=== PATIENT | female | born 1985 | race African-American/Black ===

== ENCOUNTER 2019-02-05 15:43 | Emergency (ER) | payer OTHER ==
[~2019-02-05] VITALS: Ht 162.6 cm; Wt 74.4 kg
--- NOTE | 2019-02-05 17:08 | NUR ---
PT TO ER BED 10. C/O CHEST PALPITATION FOR 1 WEEK NOW. MONDAY SHE WAS AT URGENT CARE FOR A WORK UP AND RECIEVED A CALL ADVISING HER TO GO TO ED BECAUSE HER D DIMER IS HIGH. PLACED ON MONITOR. STABLE VITAL. AWAITING MD DOMINGUEZ.
--- NOTE | 2019-02-05 17:11 | NUR ---
JOAN HOUSTON AT BEDSIDE FOR EVAL.
--- NOTE | 2019-02-05 17:26 | NUR ---
PANMAN AT BEDSIDE FOR BLOOD DRAW.
[2019-02-05 17:33] LABS: BASOPHILS % (AUTO) 0.5 % (0.0-2.0); EOSINOPHILS % (AUTO) 2.6 % (0.0-6.0); HEMATOCRIT 37 % (33-45); HEMOGLOBIN 12.2 g/dL (11.5-14.8); LYMPHOCYTES % (AUTO) 33.8 % (20.0-44.0); MEAN CORPUSCULAR HGB CONC 33 g/dl (31.0-36.0); MEAN CORPUSCULAR VOLUME 86 fL (82-100); MONOCYTES # (AUTO) 0.8 /CMM (0.1-1.30); MONOCYTES % (AUTO) 9.5 % (2.0-12.0); NEUTROPHILS # (AUTO) 4.7 /CMM (1.8-8.9); NEUTROPHILS % (AUTO) 53.6 % (43.0-81.0); PLATELET COUNT (AUTO) 252 /CMM (150-450); RED BLOOD CELL COUNT(AUTO) 4.32 MIL/uL (4.0-5.2); WHITE BLOOD COUNT (AUTO) 8.8 K/uL (4.3-11.0)
[2019-02-05 17:49] LABS: ALANINE AMINOTRANSFERASE 15 U/L (12-78); ALBUMIN 3.4 g/dL (3.4-5.0); ALKALINE PHOSPHATASE 39 U/L (46-116); ASPARTATE AMINOTRANSFERASE 17 U/L (15-37); BILIRUBIN,DIRECT 0.1 mg/dL (0.0-0.2); BILIRUBIN,TOTAL 0.4 mg/dL (0.2-1.0); CALCIUM, SERUM 9.1 mg/dL (8.5-10.1); CARBON DIOXIDE 25 mmol/L (21-32); CHLORIDE 105 mmol/L (98-107); CREATININE 0.7 mg/dL (0.6-1.3); GLUCOSE 86 mg/dL (74-106); POTASSIUM 3.5 mmol/L (3.5-5.1); SODIUM SERUM 139 mmol/L (136-145); TOTAL PROTEIN, SERUM 7.4 g/dL (6.4-8.2); UREA NITROGEN, BLOOD 11 mg/dL (7-18)
[2019-02-05] MEDS ORDERED: IV NS 0.9% 250 ML IV ONE (19:01)
[2019-02-05] MEDS ORDERED: IOHEXOL-350 100 ML VIAL IV ONE (19:01)
[2019-02-05] MEDS ORDERED: CT SWABBABLE VALVE TRANS SET 1 EA INFUS.SET MC ONE (19:01)
--- NOTE | 2019-02-05 19:08 | NUR ---
REPORT GIVEN TO JUAN ALBERTO YAÑEZ FOR [facility].
--- NOTE | 2019-02-05 19:31 | NUR ---
back from radiology.
--- NOTE | 2019-02-05 20:57 | NUR ---
RT AT BEDSIDE FOR INCENTIVE SPIROMETER.
--- NOTE | 2019-02-05 20:58 | NUR ---
Pt ambulatory with a steady gaIT
--- NOTE | 2019-02-05 20:58 | NUR ---
Patient discharged to home in stable condition. Written and verbal after care instructions given. Patient verbalizes understanding of instruction.IV removed. Catheter intact and site benign. Pressure and 4x4 applied to site. No bleeding noted.
[2019-02-05 20:59] VITALS: BP 130/82
== END 2019-02-05 21:00 | disposition home or self-care (01) ==
LOC: ER 15:50
DX: R07.89 Other chest pain (principal); J45.909 Unspecified asthma, uncomplicated
CPT/HCPCS: 36415; 71275; 80048; 80076; 83690; 84484; 84703; 85025; 85378; 93005; 94799; 99284; J7050; Q9967